=== PATIENT | male | born 1990 ===

== ENCOUNTER → 2020-05-10 15:33 | Outpatient (ROUT) | payer OTHER, SELFPAY ==
[2020-05-10 16:22] LABS: COVID19 -Nasal RAPID Negative (Negative)
== END ==
PROVIDERS: Visit Provider Family Medicine
DX: Z20.822 Contact with and (suspected) exposure to COVID-19 (principal)
CPT/HCPCS: 87635

== ENCOUNTER → 2020-05-16 14:23 | Outpatient (ROUT) | payer OTHER, SELFPAY ==
[2020-05-16 14:54] LABS: COVID19 -Nasal RAPID Negative (Negative)
== END ==
PROVIDERS: Visit Provider Family Medicine
DX: Z20.822 Contact with and (suspected) exposure to COVID-19 (principal)
CPT/HCPCS: 87635